=== PATIENT | male | born 2000 | race Caucasian/White ===

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

== ENCOUNTER 2022-05-13 00:54 | Emergency (ER) | payer OTHER ==
[~2022-05-13] VITALS: Ht 177.8 cm; Wt 52.2 kg
[~2022-05-13 00:54] MED LIST changes: +HYDHCL25 PO
== END 2022-05-13 03:58 | disposition home or self-care (01) ==
LOC: ER 00:54
DX: U07.1 COVID-19 (principal)
CPT/HCPCS: 99283